=== PATIENT | male | born 1975 | race Caucasian/White ===

== ENCOUNTER → 2020-09-10 14:37 | Outpatient (BNVA) | payer OTHER, SELFPAY | PROVIDERS: Family Provider Internal Medicine; Visit Provider Internal Medicine | DX: F41.1 Generalized anxiety disorder (principal); I10 Essential (primary) hypertension | CPT/HCPCS: 80053; 80061; 84443; 85025 ==

== ENCOUNTER 2022-10-07 17:10 | Emergency (ER) | payer OTHER, SELFPAY ==
[2022-10-07 17:19] VITALS: BP 126/89; PULSE 123; RESP 18; TEMP 37.2; O2SAT 97
--- NOTE | 2022-10-07 17:26 | CTR_ITS ---
PROCEDURE INFORMATION: Exam: CT Abdomen And Pelvis With Contrast Exam date and time: 10/07/2022 5:45 PM Age: 47 years old Clinical indication: Abdominal tenderness; Patient HX: Llq pain, new onset wo trauma; Additional info: Abd pain TECHNIQUE: Imaging protocol: Computed tomography of the abdomen and pelvis with contrast. Sagittal and coronal reformatted images were created and reviewed. Radiation optimization: All CT scans at this facility use at least one of these dose optimization techniques: automated exposure control; mA and/or kV adjustment per patient size (includes targeted exams where dose is matched to clinical indication); or iterative reconstruction. Contrast material: OMNIPAQUE 350; Contrast volume: 95 ml; Contrast route: INTRAVENOUS (IV); COMPARISON: No relevant prior studies available. RADIATION DOSE METRICS: Total DLP (mGy-cm): 1236.43 FINDINGS: Lungs: Visualized lungs are clear. There is linear scarring in the right lower lobe. Pleural spaces: No pleural effusion. Heart: Visualized portions of the heart are unremarkable. Liver: The liver is unremarkable. Gallbladder and bile ducts: The gallbladder is unremarkable. No biliary ductal dilatation. Pancreas: The pancreas is unremarkable. No pancreatic ductal dilatation. Spleen: The spleen is unremarkable. Adrenal glands: The right and left adrenal glands are unremarkable. Kidneys and ureters: The right and left kidneys are unremarkable. The right and left ureters are unremarkable. Stomach and bowel: Numerous diverticula in the sigmoid colon. Moderate wall thickening of the sigmoid colon with surrounding pericolonic inflammatory change. No acute abnormality in the small bowel. The stomach is collapsed, which can limit evaluation. No focal abnormality in the stomach otherwise. Appendix: The appendix is visualized and is unremarkable. No findings to suggest acute appendicitis. Intraperitoneal space: No free intraperitoneal air. No ascites. No loculated fluid collections to suggest an abscess. Vasculature: Mild atherosclerotic changes in the visualized arteries. No evidence for aortic aneurysm or aortic dissection. Hepatic veins, portal veins, splenic vein, and SMV are patent. Lymph nodes: No lymphadenopathy. Urinary bladder: The bladder is incompletely filled, which can limit evaluation. No focal abnormality in the bladder however. Reproductive: Unremarkable as visualized. Bones/joints: Degenerative changes in the spine and hips. Mild spinal canal stenosis at L3-L4, L4-L5, and L5-S1. Multilevel foraminal stenosis of varying severity in the lumbar spine. Soft tissues: No acute abnormality in the extra-abdominal soft tissues. CT/CT abdomen pelvis w con* [id number] IMPRESSION: 1. Sigmoid diverticulosis. Changes consistent with moderate sigmoid diverticulitis. 2. Incidental/nonacute findings are listed in the report.
[2022-10-07 17:43] LABS: Basophils # 0.1 10^3/uL (0.0-0.1); Basophils % 0.5 %; Eosinophils # 0.2 10^3/uL (0.0-0.8); Eosinophils % 0.9 %; Hemoglobin 16.5 g/dL (11.7-16.6); Lymphocytes # 1.8 10^3/uL (0.8-4.8); Lymphocytes % 11.3 %; Mean Corpuscular HGB Conc 34.4 g/dL (30.0-36.0); Mean Corpuscular Hemoglobin 31.5 pg (28.0-34.0); Mean Corpuscular Volume 91.6 fl (80-94); Mean Platelet Volume 9.8 fL (7.4-10.4); Monocytes # 1.5 10^3/uL (0.2-0.9); Monocytes % 9.4 %; Neutrophils # 12.38 10^3/uL (1.8-7.7); Neutrophils % 77.4 %; Nucleated Red Blood Cells % 0 %; Platelet Count 313 10^3/cmm (130-400); Red Blood Count 5.24 10^6/uL (4.1-5.3); Red Cell Distribution Width 11.9 % (12.1-15.1)
--- NOTE | 2022-10-07 17:44 | ED_ITS ---
HPI - Abdominal Pain General: Chief Complaint: Abdominal Pain Stated Complaint: left lower side is very painful Time Seen by Provider: 10/07/22 17:26 Source: patient Mode of arrival: ambulatory Limitations: no limitations History of Present Illness: 47-year-old male states has been having left lower quadrant pain that started last night and is worsened throughout the day states pain is sharp in nature worse with movement improved with rest states pain is currently 7 out of 10 he has had no fevers no vomiting no diarrhea denies any history of pain like this before no history of diverticulitis. Associated Symptoms: Denies chills, dysuria and fever(s) Review of Systems Const: Denies: fever(s), chills, body aches or change in appetite Eyes: Denies: blurry vision or eye discomfort ENMT: Denies: throat pain or dental pain Card: Denies: chest pain Resp: Denies: dyspnea GI: Reports: abdominal pain : Denies: dysuria Musc: Denies: neck pain or back pain Skin/Breast: Denies: rash Neuro: Denies: headache(s) Psych: Denies: depression Serafin/Lymph: Denies: easy bruising All/Imm: Denies: urticaria PFSH ED PFSH: Medical History (Updated 10/07/22 @ 19:07 by Brionna Ni MD) Hypertension Family History Mother Hypertension Social History Smoking and tobacco status: former smoker Alcohol intake: current Alcohol intake frequency: holidays/special occasions only Alcohol type: hard liquor Adopted: Yes Marital status: Number of children: 2 service: No History of recent travel: No Physical Exam Const: COMMON NORMALS: no acute distress, patient oriented x3 and healthy appearing HENMT: COMMON NORMALS: normocephalic and atraumatic HEAD & SCALP: normocephalic and atraumatic Eye: COMMON NORMALS: Equal, round and reactive pupils present and EOMs intact bilaterally PUPIL: Yes Equal, round and reactive pupils present Neck/C-Spine: COMMON NORMALS: full ROM and supple Chest: COMMONS NORMALS: normal inspection of the chest and normal palpation of entire chest wall Resp: COMMON NORMALS: normal respiratory effort, No retractions, No use of accessory muscles and clear to auscultation bilaterally AUSCULTATION: clear to auscultation bilaterally Cardio: COMMON NORMALS: regular rate, regular rhythm and No murmurs present (Cardio) RATE: regular rate RHYTHM: regular rhythm GI: COMMON NORMALS: Normal to inspection, nondistended, normoactive bowel s ounds present, Soft to palpation and no masses PALPATION: Yes Soft to pal pation and Yes Tenderness to palpation present (GI) Details: LLQ Extremity: COMMON NORMALS: normal to inspection and full ROM Neuro: COMMON NORMALS: patient oriented x3, moves all extremities and no focal motor deficits Psych: COMMON NORMALS: mental status grossly normal, Normal thought process present and cooperative THOUGHT PROCESS: Normal thought process present Skin: COMMON NORMALS: no rashes or lesions noted and no wounds GENERAL SKIN EXAM: no rashes or lesions noted Course Vital Signs: Vital signs: Vital Signs Temperature 98.9 F 10/07/22 17:19 Pulse Rate 98 10/07/22 19:13 Respiratory Rate 14 10/07/22 19:13 Blood Pressure 128/84 10/07/22 19:13 Pulse Oximetry 94 10/07/22 19:13 Oxygen Delivery Me thod 10/07/22 17:19 MDM - Abdominal Pain Medical Decision Making Patient presents here with abdominal pain CT did show diverticulitis his pain is much improved here I did offer him admission he states he like to trial outpatient therapy first we will place him on antibiotics Cipro Flagyl along with pain meds I informed he has any fevers vomiting or worsening he is to return he understands agrees to plan. Lab Data 10/07/22 17:38 10/07/22 17:38 Labs/Radiology: Radiology Impressions Abdomen/Pelvis CT 10/07/22 17:26 IMPRESSION: 1. Sigmoid diverticulosis. Changes consistent with moderate sigmoid diverticulitis. 2. Incidental/nonacute findings are listed in the report. Laboratory Results WBC 16.0 10^3/uL (4.0-10.0) H 10/07/22 17:38 RBC 5.24 10^6/uL (4.1-5.3) 10/07/22 17:38 Hgb 16.5 g/dL (11.7-16.6) 10/07/22 17:38 Hct 48.0 % (42.0-52.0) 10/07/22 17:38 MCV 91.6 fl (80-94) 10/07/22 17:38 MCH 31.5 pg (28.0-34.0) 10/07/22 17:38 MCHC 34.4 g/dL (30.0-36.0) 10/07/22 17:38 RDW 11.9 % (12.1-15.1) L 10/07/22 17:38 Plt Count 313 10^3/cmm (130-400) 10/07/22 17:38 MPV 9.8 fL (7.4-10.4) 10/07/22 17:38 Neut % (Auto) 77.4 % 10/07/22 17:38 Lymph % (Auto) 11.3 % 10/07/22 17:38 [place] % (Auto) 9.4 % 10/07/22 17:38 Eos % (Auto) 0.9 % 10/07/22 17:38 Baso % (Auto) 0.5 % 10/07/22 17:38 Neut # (Auto) 12.38 10^3/uL (1.8-7.7) H 10/07/22 17:38 Lymph # (Auto) 1.8 10^3/uL (0.8-4.8) 10/07/22 17:38 [place] # (Auto) 1.5 10^3/uL (0.2-0.9) H 10/07/22 17:38 Eos # (Auto) 0.2 10^3/uL (0.0-0.8) 10/07/22 17:38 Baso # (Auto) 0.1 10^3/uL (0.0-0.1) 10/07/22 17:38 Nucleated RBC % (auto) 0 % 10/07/22 17: Nucleated RBCs # 0.0 /100WBC 10/07/22 17:38 Sodium 132 mmol/L (136-145) L 10/07/22 17:38 Potassium 4.0 mmol/L (3.5-5.1) 10/07/22 17:38 Chloride 97 mmol/L (98-107) L 10/07/22 17:38 Carbon Dioxide 24 mmol/L (22-29) 10/07/22 17:38 Anion Gap 15.0 (5-19) 10/07/22 17:38 BUN 16 mg/dL (6-20) 10/07/22 17:38 Creatinine 1.0 mg/dL (0.7-1.2) 10/07/22 17:38 GFR Calculation 79.8 mL/min (90-130) L 10/07/22 17:38 Glucose 113 mg/dL (65-115) 10/07/22 17:38 Calculated Osmolality 276 mOsm/kg (285-295) L 10/07/22 17:38 Calcium 9.8 mg/dL (8.5-10.5) 10/07/22 17:38 Total Bilirubin 0.8 mg/dL (0.15-1.2) 10/07/22 17:38 AST 24 U/L (0-40) 10/07/22 17:38 ALT 41 U/L (0-41) 10/07/22 17:38 Alkaline Phosphatase 110 U/L (40-130) 10/07/22 17:38 Total Protein 7.6 g/dL (6.6-8.7) 10/07/22 17:38 Albumin 4.5 g/dL (3.5-5.2) 10/07/22 17:38 Globulin 3.1 g/dL (1.3-4.6) 10/07/22 17:38 Lipase 21 U/L (13-60) 10/07/22 17:38 Urine Color Yellow (Yellow) 10/07/22 17:34 Urine Appearance Clear (CLEAR) 10/07/22 17:34 Urine pH 7 (5-7) 10/07/22 17:34 Ur Specific [place] 1.015 (1.005-1.030) 10/07/22 17:34 Urine Protein Trace (Negative) 10/07/22 17:34 Urine Glucose (UA) Norm (Normal) 10/07/22 17:34 Urine Ketones Negative (Negative) 10/07/22 17:34 Urine Blood 2+ (Negative) H 10/07/22 17:34 Urine Nitrate Negative (Negative) 10/07/22 17:34 Urine Bilirubin Neg (Negative) 10/07/22 17:34 Urine Urobilinogen Neg mg/dL (Negative) 10/07/22 17:34 Ur Leukocyte Esterase Negative (Negative) 10/07/22 17:34 Urine RBC None /hpf (0-2) 10/07/22 17:34 Urine WBC None /hpf (0-5) 10/07/22 17:34 Ur Squamous Epith Cells None /hpf (0-5) 10/07/22 17:34 Amorphous Sediment 3+ /hpf 10/07/22 17:34 Urine Bacteria None /hpf (NONE) 10/07/22 17:34 Discharge Plan Discharge Patient Disposition: Home Clinical Impression: Diverticulitis Condition: Stable Prescriptions: New hydrocodone-acetaminophen 5-325 mg tablet 1 tab PO Q6H PRN (Reason: pain) Qty: 14 0RF metronidazole 500 mg tablet 500 mg PO Q8H 7 Days Qty: 21 0RF Cipro 500 mg tablet 500 mg PO BID Qty: 14 0RF ondansetron 4 mg tablet,disintegrating 4 mg PO Q6H PRN (Reason: nausea and vomiting) Qty: 14 0RF No Action alprazolam [Xanax] 0.25 mg tablet 0.25 mg PO BID PRN (Reason: anxiety) Qty: 60 0RF duloxetine 40 mg capsule,delayed release(DR/EC) 40 mg PO DAILY Qty: 90 3RF amlodipine 10 mg tablet 10 mg PO DAILY Qty: 90 3RF losartan-hydrochlorothiazide [Hyzaar] 100-25 mg tablet 1 tab PO DAILY Qty: 90 3RF Discharge Orders: Discharge ED (Routine); Ordered 10/07/22 Ordered By: Brionna Ni Discharge Diet: Advance as tolerated Discharge Activity: Resume usual activity Patient Instructions: Diverticulitis (ED), Opioid Safety Coding Level of Care Code ED Buffing Line Set Up Worker for Chg Fwd Exam Comprehensive
[2022-10-07] MEDS: iohexol 350 mg/mL 500 mL Btl (per mL) IV (17:51)
[2022-10-07 17:56] LABS: Bilirubin Urine Neg (Negative); Blood Urine 2+ (Negative); Glucose Urine UA Norm (Normal); Ketones Urine Negative (Negative); Nitrate Urine Negative (Negative); Protein Urine Trace (Negative); Specific Gravity, Urine 1.015 (1.005-1.030); Urine Appearance Clear (CLEAR); Urine Color Yellow (Yellow); Urobilinogen Urine Neg (Negative); pH Urine 7 (5-7)
[2022-10-07 17:57] LABS: Add Urine Microscopic? YES; Leukocyte Esterase Urine Negative (Negative)
[2022-10-07 18:02] LABS: Alanine Aminotransferase 41 U/L (0-41); Albumin Level 4.5 g/dL (3.5-5.2); Alkaline Phosphatase 110 U/L (40-130); Aspartate Amino Transferase 24 U/L (0-40); Blood Urea Nitrogen 16 mg/dL (6-20); Calcium 9.8 mg/dL (8.5-10.5); Carbon Dioxide 24 mmol/L (22-29); Chloride 97 mmol/L (98-107); Globulin 3.1 g/dL (1.3-4.6); Glomerular Filtration Rate 79.8 mL/min (90-130); Glucose 113 mg/dL (65-115); Lipase 21 U/L (13-60); Osmolality Calculated 276 mOsm/kg (285-295); Sodium 132 mmol/L (136-145); Total Bilirubin 0.8 mg/dL (0.15-1.2); Total Protein 7.6 g/dL (6.6-8.7)
[2022-10-07 18:04] VITALS: RESP 16
[2022-10-07] MEDS: morphine 4 mg/mL SDV 1 mL IVP (18:04)
[2022-10-07] MEDS: sodium chloride 0.9% 1,000 ML 999 ML IV (18:04)
[2022-10-07] MEDS: ondansetron 2 mg/ML SDV 2 mL 4 MG IVP (18:04)
[2022-10-07 18:07] LABS: Amorphous Sediment Urine 3+ /hpf
--- NOTE | 2022-10-07 19:00 | PC.NURSE ---
REPORT GIVEN TO [facility]ARE.
[2022-10-07 19:09] VITALS: RESP 14; O2SAT 95
[2022-10-07] MEDS: ciprofloxacin 500 mg Tablet PO (19:09)
[2022-10-07] MEDS: metroNIDAZOLE 500 MG Tablet PO (19:09)
[2022-10-07] MEDS: HYDROmorphone 1 mg/mL INJ 1 mL IVP (19:09)
[2022-10-07 19:13] VITALS: BP 128/84; PULSE 98; RESP 14; O2SAT 94
--- NOTE | 2022-10-10 14:12 | DCPLANNER ---
government sales manager had message to speak with patient about getting established with a primary care physician. Patient stated that he called and made an appointment with Dr. Cooper at [facility].
== END 2022-10-07 19:21 | disposition home or self-care (01) ==
PROVIDERS: Emergency Provider Emergency Medicine
DX: K57.92 Diverticulitis of intestine, part unspecified, without perforation or abscess without bleeding (principal); I10 Essential (primary) hypertension; Z87.891 Personal history of nicotine dependence
CPT/HCPCS: 74177; 80053; 81001; 83690; 85025; 96361; 96374; 96375; 99285; J1170; J2270; J2405; J7030; Q9967

== ENCOUNTER → 2023-05-02 14:43 | Outpatient (BNVA) | payer OTHER, SELFPAY | PROVIDERS: PCP Family Medicine; Visit Provider Family Medicine | DX: I10 Essential (primary) hypertension (principal); F41.1 Generalized anxiety disorder; Z12.5 Encounter for screening for malignant neoplasm of prostate | CPT/HCPCS: 80053; 80061; 85025; G0103 ==

== ENCOUNTER → 2023-08-28 10:20 | Outpatient (BNVA) | payer OTHER, SELFPAY | PROVIDERS: PCP Family Medicine; Visit Provider Family Medicine | DX: Z00.00 Encounter for general adult medical examination without abnormal findings (principal) | CPT/HCPCS: 80048; 80061; 83036; 84443 ==

== ENCOUNTER → 2024-08-12 10:00 | Outpatient (BNVA) | payer OTHER, SELFPAY | PROVIDERS: PCP Family Medicine; Visit Provider Family Medicine | DX: I10 Essential (primary) hypertension (principal); F41.1 Generalized anxiety disorder; Z12.5 Encounter for screening for malignant neoplasm of prostate; E55.9 Vitamin D deficiency, unspecified | CPT/HCPCS: 80053; 80061; 82306; 84443; G0103 ==

== ENCOUNTER → 2025-07-17 15:00 | Outpatient (BNVA) | payer OTHER, SELFPAY | PROVIDERS: PCP Family Medicine; Visit Provider Family Medicine | DX: Z12.5 Encounter for screening for malignant neoplasm of prostate (principal); F41.1 Generalized anxiety disorder; I10 Essential (primary) hypertension; E78.2 Mixed hyperlipidemia; E55.9 Vitamin D deficiency, unspecified | CPT/HCPCS: 80053; 80061; 82306; 84443; 85025; G0103 ==